=== PATIENT | male | born 1995 | race Two or more races ===

== ENCOUNTER 2020-08-04 22:55 | Emergency (ER) | payer OTHER ==
[~2020-08-04] VITALS: Ht 172.7 cm; Wt 68.0 kg
--- NOTE | 2020-08-04 23:15 | NUR ---
ED Nurse Note: RECIEVED PT FROM HOME, HERE WITH C/O FEELING ANXIOUS, CANT SLEEP, AND FATIGUED CAUSE HE THINKS HE MAY HAVE COVID, STATES FRIENDS TOLD HIM, DENIES FEVERS, COUGH, ANY RESPIRATORY S/S, NAUSEA OR EMESIS, PT IS ASKING FOR COVID TESTING.
--- NOTE | 2020-08-04 23:15 | NUR ---
ED Nurse Note: Recieved pt from home, here with c/o [id number] very N
--- NOTE | 2020-08-04 23:38 | Emergency Room Report ---
History of Present Illness General Chief Complaint: General Complaint Source: Patient Present Illness HPI 25M with no prior medical history here with fatigue after taking a nap [employer]PER[employer]. Denies fevers, nausea, vomiting, diarrhea, dysuria, hematuria, melena, hematochezia, recent travel, cough, SOB, antibiotic use, sick contacts. Denies focal deficit, headache, neck pain, rash or other symptoms States he works from home and is hungry because he hasnt eaten dinner. Is also concerned he does not have enough exercise. The patient's symptoms were gradual onset, severity was moderate, duration since 1 day. Quality: General fatigue Past medical history: Denies Past surgical history: Denies Smoking: Denies Alcohol use: Denies Drug use: Denies Review of systems: CONST: No fevers ++ chills, No night sweats PULMONARY: No productive cough, No shortness of breath CARDIAC: No chest pain, No palpitations GI: No vomiting, No diarrhea , No melena_or_BRBPR : No dysuria, No hematuria, No discharge NEURO: No new_focal_weakness_or_numbness, No confusion, No vision changes 14 point Review of Systems is otherwise negative except per HPI Physical Exam: GENERAL: Awake_alert_ nontoxic, no acute distress Spo2 97% on RA -normal EYES: Extraocular muscles are intact. Conjunctivae clear. Lids without swelling ENT: External nose and ear normal_in_appearance. Oropharynx clear. Head_atraumatic, Moist_oral_mucosa NECK: No JVD. No meningismus. No thyromegaly. Supple. Trachea midline RESP: Normal respiratory effort. Symmetric rise. No stridor. Clear_to_auscu ltation_No_rales_No_wheezes CARDIAC: Regular rate and regular rhytm. No_significant pedal edema. ABDOMEN: Soft. Nondistended. Nontender_No_rebound_or_guarding. MSK: Normal muscle tone, without rigidity. Extremities without asymmetric deformity or swelling. SKIN: Warm and dry. No visible cyanosis or pallor NEUROLOGIC: Alert, oriented x3. Motor_and_sensation_grossly_intact. No truncal ataxia. Gait_normal Psych: Normal mood and affect, normal judgment and insight - COORDINATION OF CARE Case was discussed with: Patient Medical Decision Making/Plan: Ddx: fatigue 2/2 viral syndrome vs dehydration vs deconditioning Patient is clinically well-appearing. Afebrile. No emergent etiology for his fatigue x1 day identified. COVID swab was negative. He denies any respiratory complaints. No indication for chest x-ray. I discussed lifestyle modification at length. Offered advice about nutrition and exercise Patient asymptomatic at the time of discharge. Pertinent results reviewed with the patient. I educated the patient on the current treatment plan including the risks, benefits, and alternatives. I also discussed the extent and limitations of the current evaluation. The patient expressed understanding and agreement with plan. I recommended PMD follow-up within 1-2 days. Also advised that the patient return to the Emergency Department as soon as possible if they experience any new, persistent, or worsening symptoms. Allergies: Coded Allergies: No Known Allergies (Unverified , 08/04/20) COVID-19 Screening Contact w/high risk pt: No Experienced COVID-19 symptoms?: No COVID-19 Testing performed [employer]PER[employer]OR: No Nursing Documentation-PMH Past Medical History: No Stated History Physical Exam Vital Signs Date Time Temp Pulse Resp B/P (MAP) Pulse Ox O2 Delivery O2 Flow Rate FiO2 08/04/20 23:03 98.8 88 18 127/67 (87) 94 Room Air Sp02 EP Interpretation: reviewed, normal Medical Decision Making Diagnostic Impression: Primary Impression: Fatigue Last Vital Signs Date Time Temp Pulse Resp B/P (MAP) Pulse Ox O2 Delivery O2 Flow Rate FiO2 08/04/20 23:03 98.8 88 18 127/67 (87) 94 Room Air Disposition: HOME, SELF-CARE Admit Decision Time: 23:37 Condition: Stable Referrals: NOT CHOSEN IPA/MD,REFERRING (PCP) Patient Instructions: Fatigue Additional Instructions: Instructions for patient/district operations manager: Follow up with your physician in 1-2 days. Follow-up with your doctor sooner if your condition requires a more timely clinical reevaluation. Return to the emergency department immediately if you feel that your condition is worsening or if you have any new or concerning symptoms. Review your discharge instructions and take any prescriptions given as instructed. [facility] PROVIDES FREE OR LOW-COST HEALTH SERVICES TO PEOPLE WHO CAN SHOW PROOF THAT THEY LIVE IN [facility]. TO FIND MORE CLINICS PARTNERED WITH THE [facility] TO PROVIDE SERVICE, PLEASE CALL . Nancy Jones D.O. Aug 04, 2020 23:38
[2020-08-04 23:50] VITALS: BP 127/67
--- NOTE | 2020-08-04 23:50 | NUR ---
ER DISCHARGE NOTE: Patient is cleared to be discharged per ERMD, pt is aox4, on room air, with stable vital signs. pt was given dc instructions, pt was able to verbalize understanding, pt id band removed without complications. pt is able to ambulate with steady gait. pt took all belongings.
[2020-08-04 23:55] VITALS: BP 127/67
== END 2020-08-04 23:55 | disposition home or self-care (01) ==
LOC: EMR 23:20
DX: R53.83 Other fatigue (principal)
CPT/HCPCS: 99282; U0002